=== PATIENT | male | born 1960 | race Caucasian/White ===

== ENCOUNTER 2020-01-09 10:08 | Emergency (ER) | payer OTHER, SELFPAY ==
--- NOTE | ~2020-01-09 | XR_ITS ---
EXAMINATION: XR chest 1V portable DATE: 01/09/2020 11:01 INDICATION: Chest pain, cough and dyspnea TECHNIQUE: frontal view of the chest was obtained. COMPARISON: Chest radiograph dated 03/20/2016 FINDINGS: The lungs are expanded with flattening of the diaphragm. No focal airspace opacities, pulmonary edema , pleural effusion or pneumothorax. The cardiomediastinal silhouette is normal. Visualized bones and soft tissues are unremarkable. IMPRESSION: 1. Hyperexpansion of the lungs suggestive but not diagnostic of COPD. Reviewed, dictated and finalized at location A.
[2020-01-09 10:08] VITALS: BP 152/88; PULSE 72; RESP 20; TEMP 36.9; O2SAT 98
--- NOTE | 2020-01-09 10:11 | ECG_ITS ---
Measurements Intervals [place] Rate: 69 P: 83 NV: 155 QRS: -44 QRSD: 120 T: 73 QT: 374 QTc: 403 Interpretive Statements SINUS RHYTHM LEFT AXIS DEVIATION LEFT BUNDLE BRANCH BLOCK ANTEROSEPTAL INFARCT OR DUE TO LBBB BASELINE ARTIFACT- I, II, III, AVR, AVL, AVF, V1-V6 ABNORMAL ECG Electronically Signed On 01-09-2020 13:48:34 CDT by Danny Coker D.O.
[2020-01-09] MEDS: SODIUM CHLORIDE 0.9% IV 500 ML 999 ML IV CONT (10:26)
[2020-01-09] MEDS: ASPIRIN 81 MG CHEWABLE TABLET 324 MG PO (10:26)
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
[2020-01-09 10:38] LABS: Basophils Absolute Auto 0.03 K/mm3 (0.00-0.10); Basophils Percent Auto 0.3 % (0.0-1.0); Eosinophils Absolute Auto 0.07 K/mm3 (0.02-0.50); Eosinophils Percent Auto 0.6 % (1.0-6.0); Hematocrit 43.4 % (40.0-54.0); Hemoglobin 14.6 g/dL (14.0-18.0); Immature Granulocyte Absolute 0.02 K/mm3 (0.00-0.00); Immature Granulocyte Percent A 0.2 % (0.0-0.0); Lymphocytes Absolute Auto 0.97 K/mm3 (1.10-4.50); Lymphocytes Percent Auto 8.4 % (18.0-42.0); Mean Corpuscular HGB Conc 33.6 g/dL (32.0-36.0); Mean Corpuscular Hemoglobin 30.3 pg (27.0-31.0); Mean Platelet Volume 8.4 fl (8.7-11.0); Monocytes Absolute Auto 0.86 K/mm3 (0.10-0.90); Monocytes Percent Auto 7.5 % (2.0-11.0); Neutrophils Absolute Auto 9.6 K/mm3 (1.7-7.2); Platelet Count Result 246 K/mm3 (150-420); Red Blood Count 4.82 M/mm3 (4.70-6.10); Red Cell Distribution Width 12.7 % (11.6-14.4); White Blood Count 11.5 K/mm3 (4.8-10.8)
[2020-01-09 10:42] VITALS: PULSE 66
[2020-01-09 10:52] LABS: D Dimer 0.22 mg/L (0.19-0.50); Partial Thromboplastin Time 31.3 SEC (22.3-31.6); Prothrombin Time 10.1 Seconds (9.64-11.0)
[2020-01-09 10:56] LABS: Influenza Control Valid (Valid)
--- NOTE | 2020-01-09 10:57 | PC.NURSE ---
report to catherine whitaker
[2020-01-09 10:59] LABS: Alanine Aminotransferase 19 U/L (16-63); Albumin Level 3.5 g/dL (3.4-5.0); Alkaline Phosphatase 114 U/L (46-116); Anion Gap 7 mmol/L (8-16); Aspartate Amino Transferase 21 U/L (15-37); Bilirubin,Total 0.4 mg/dL (0.00-1.00); Blood Urea Nitrogen 10 mg/dL (7-18); Calcium 9.1 mg/dL (8.5-10.1); Carbon Dioxide 30 mmol/L (21-32); Chloride 100 mmol/L (98-108); Estimated CRCL calculation 48 ml/min; Estimated Glomerular Filt Rate 57; Glucose 97 mg/dL (70-99); Osmolality Calculated 283 mOsm/kg (285-295); Potassium 4.2 mmol/L (3.5-5.1); Sodium 137 mmol/L (136-145); Total Protein 8.2 g/dL (6.4-8.2); Troponin I < 0.02 ng/mL (0.00-0.056)
[2020-01-09] MEDS: ACETAMINOPHEN 500 MG TABLET 1000 MG PO (11:00)
--- NOTE | 2020-01-09 11:00 | PC.NURSE ---
Pt declines chest pain at this time, nitroglycerin declined per pt.
[2020-01-09 11:02] LABS: BNP 58 pg/mL (0-100)
[2020-01-09 12:02] VITALS: BP 138/83; PULSE 70; RESP 18; O2SAT 99
[2020-01-09 12:11] LABS: Add Urine Microscopic? YES; Appearance Urine Clear (Clear); Bilirubin Urine Negative (Negative); Blood Urine 2+ (Negative); Color Urine Yellow (Yellow); Glucose Urine UA Negative (Negative); Ketones Urine Negative (Negative); Leukocyte Esterase Ur Negative LEU/UL (Negative); Nitrate Urine Negative (Negative); Protein Urine Negative (Negative); Specific Grav Ur 1.015 (1.010-1.020)
[2020-01-09 12:18] LABS: Bacteria Urine Trace /hpf; WBC Urine 0-3 /hpf (0-3)
[2020-01-09 14:00] VITALS: BP 140/84; PULSE 69; RESP 60; O2SAT 100
--- NOTE | 2020-01-09 14:33 | PC.NURSE ---
pt resting comfortably on stretcher, no distress noted. attempting to find a ride home for the patient.
[2020-01-09 14:50] VITALS: RESP 16; O2SAT 97
[2020-01-10 18:19] LABS: SARS-CoV-2 RNA PCR Negative
== END 2020-01-09 14:52 | disposition home or self-care (01) ==
PROVIDERS: Emergency Provider Emergency Medicine; PCP Physician Assistant
DX: J44.9 Chronic obstructive pulmonary disease, unspecified (principal); J06.9 Acute upper respiratory infection, unspecified; Z20.828 Contact with and (suspected) exposure to other viral communicable diseases
CPT/HCPCS: 36415; 71045; 80053; 81001; 83880; 84484; 85025; 85380; 85610; 85730; 87040; 87635; 87804; 93005; 96360; 99284; A9270; C9803; J7040; U0003

== ENCOUNTER 2020-04-02 15:53 | Emergency (ER) | payer OTHER, SELFPAY ==
[2020-04-02 16:42] VITALS: BP 128/70; PULSE 69; RESP 20; TEMP 36.2; O2SAT 98
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
== END 2020-04-02 17:33 | disposition home or self-care (01) ==
PROVIDERS: Emergency Provider Emergency Medicine; PCP Physician Assistant
DX: L02.415 Cutaneous abscess of right lower limb (principal)
CPT/HCPCS: 99283

== ENCOUNTER 2020-07-05 07:43 | Outpatient (CLI) | payer OTHER, SELFPAY ==
[2020-07-05 07:59] LABS: Basophils Absolute Auto 0.06 K/mm3 (0.00-0.10); Eosinophils Absolute Auto 0.38 K/mm3 (0.02-0.50); Eosinophils Percent Auto 6.5 % (1.0-6.0); Hematocrit 40.6 % (40.0-54.0); Hemoglobin 13.5 g/dL (14.0-18.0); Immature Granulocyte Absolute 0.01 K/mm3 (0.00-0.00); Immature Granulocyte Percent A 0.2 % (0.0-0.0); Lymphocytes Absolute Auto 1.11 K/mm3 (1.10-4.50); Lymphocytes Percent Auto 18.8 % (18.0-42.0); Mean Corpuscular HGB Conc 33.3 g/dL (32.0-36.0); Mean Corpuscular Hemoglobin 29.7 pg (27.0-31.0); Mean Corpuscular Volume 89.4 fL (78.0-102.0); Mean Platelet Volume 8.3 fl (8.7-11.0); Monocytes Absolute Auto 0.44 K/mm3 (0.10-0.90); Monocytes Percent Auto 7.5 % (2.0-11.0); Neutrophils Absolute Auto 3.9 K/mm3 (1.7-7.2); Platelet Count Result 239 K/mm3 (150-420); Red Blood Count 4.54 M/mm3 (4.70-6.10); Red Cell Distribution Width 13.2 % (11.6-14.4); White Blood Count 5.9 K/mm3 (4.8-10.8)
[2020-07-05 09:04] LABS: Alanine Aminotransferase 27 U/L (16-63); Albumin Level 3.6 g/dL (3.4-5.0); Alkaline Phosphatase 87 U/L (46-116); Anion Gap 6 mmol/L (8-16); Aspartate Amino Transferase 21 U/L (15-37); Bilirubin,Total 0.2 mg/dL (0.00-1.00); Blood Urea Nitrogen 16 mg/dL (7-18); Calcium 9.2 mg/dL (8.5-10.1); Carbon Dioxide 30 mmol/L (21-32); Chloride 102 mmol/L (98-108); Cholesterol 214 mg/dL (0-200); Creatine Kinase 156 U/L (39-308); Estimated Glomerular Filt Rate 59; Glucose 94 mg/dL (70-99); HDL Direct 96 mg/dL (40-60); LDL Cholesterol Calculated 103 mg/dL (<130); Osmolality Calculated 287 mOsm/kg (285-295); Potassium 4.8 mmol/L (3.5-5.1); Prostate Specific Antigen 0.5 ng/mL (< OR = 4.0); Sodium 138 mmol/L (136-145); Triglycerides 73 mg/dL (0-150)
[2020-07-05 09:11] LABS: Glucose Fasting 94 mg/dL
[2020-07-05 09:16] LABS: Glucose 1 Hour 222 mg/dL (<180)
[2020-07-05 10:44] LABS: Glucose 2 Hour 39 mg/dL (<155)
== END 2020-07-05 07:44 | disposition home or self-care (01) ==
LOC: CHSLAB 07:46
PROVIDERS: PCP Physician Assistant; Visit Provider Physician Assistant
DX: R73.09 Other abnormal glucose (principal); Z12.5 Encounter for screening for malignant neoplasm of prostate; E78.5 Hyperlipidemia, unspecified
CPT/HCPCS: 36415; 80053; 80061; 82550; 82951; 84153; 85025; G0103

== ENCOUNTER 2020-09-22 07:17 | Outpatient (CLI) | payer OTHER, SELFPAY ==
--- NOTE | ~2020-09-22 | XR_ITS ---
[XR ribs RT 2V w CXR 2V ] INDICATION: Right rib pain TECHNIQUE: Frontal projection of the upper right ribs, frontal projection of the lower right ribs, ob lique projection of all the right ribs, frontal inspiratory chest x-ray for interpretation. FINDINGS: There are no displaced rib fractures identified. There are no soft tissue abnormality see n. The lungs are clear. IMPRESSION: 1:No displaced rib fractures. Reviewed, dictated and finalized at location A.
== END 2020-09-22 07:18 | disposition home or self-care (01) ==
LOC: CHSIMG 07:21
PROVIDERS: PCP Physician Assistant; Visit Provider Physician Assistant
DX: R07.89 Other chest pain (principal)
CPT/HCPCS: 71046; 71100

== ENCOUNTER 2021-08-15 09:51 | Emergency (ER) | payer OTHER, SELFPAY ==
--- NOTE | ~2021-08-15 | XR_ITS ---
EXAMINATION: XR abdomen/kub 1V DATE: 08/15/2021 10:49 INDICATION: Rectal bleeding. Left-sided abdominal/flank pain. TECHNIQUE: A supine view of the abdomen on 2 radiographs was obtained. COMPARISON: CT dated 04/07/2015 FINDINGS: Moderate amount of gas scattered throughout multiple nondilated loops of large and small no dilated g as-filled loops of bowel to suggest obstruction. Multiple phleboliths in the pelvis. Lung bases are c lear. Heart size is normal. Mild lumbar levocurvature with mild spondylosis. IMPRESSION: 1. No dilated loops of bowel to suggest obstruction. Reviewed, dictated and finalized at location A.
[2021-08-15 10:10] VITALS: BP 146/82; PULSE 72; RESP 18; TEMP 36.1; O2SAT 100
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
[2021-08-15 10:45] LABS: Basophils Absolute Auto 0.06 K/mm3 (0.00-0.10); Basophils Percent Auto 0.9 % (0.0-1.0); Eosinophils Absolute Auto 0.25 K/mm3 (0.02-0.50); Eosinophils Percent Auto 3.9 % (1.0-6.0); Hematocrit 41.5 % (40.0-54.0); Hemoglobin 14.2 g/dL (14.0-18.0); Immature Granulocyte Absolute 0.01 K/mm3 (0.00-0.00); Immature Granulocyte Percent A 0.2 % (0.0-0.0); Lymphocytes Absolute Auto 1.06 K/mm3 (1.10-4.50); Lymphocytes Percent Auto 16.4 % (18.0-42.0); Mean Corpuscular HGB Conc 34.2 g/dL (32.0-36.0); Mean Corpuscular Hemoglobin 30.6 pg (27.0-31.0); Mean Corpuscular Volume 89.4 fL (78.0-102.0); Mean Platelet Volume 8.1 fl (8.7-11.0); Monocytes Absolute Auto 0.53 K/mm3 (0.10-0.90); Monocytes Percent Auto 8.2 % (2.0-11.0); Neutrophils Absolute Auto 4.5 K/mm3 (1.7-7.2); Neutrophils Percent Auto 70.4 % (50.0-70.0); Platelet Count Result 210 K/mm3 (150-420); Red Blood Count 4.64 M/mm3 (4.70-6.10); Red Cell Distribution Width 12.9 % (11.6-14.4); White Blood Count 6.5 K/mm3 (4.8-10.8)
[2021-08-15 10:58] LABS: Partial Thromboplastin Time 26.8 SEC (23.90-30.70); Prothrombin Time 10.6 Seconds (9.50-12.10)
[2021-08-15 11:01] LABS: Alanine Aminotransferase 36 U/L (16-63); Albumin Level 3.8 g/dL (3.4-5.0); Alkaline Phosphatase 95 U/L (46-116); Anion Gap 7 mmol/L (8-16); Aspartate Amino Transferase 42 U/L (15-37); Bilirubin,Total 0.2 mg/dL (0.00-1.00); Blood Urea Nitrogen 16 mg/dL (7-18); Calcium 8.9 mg/dL (8.5-10.1); Carbon Dioxide 27 mmol/L (21-32); Chloride 99 mmol/L (98-108); Estimated Glomerular Filt Rate > 60; Glucose 93 mg/dL (70-99); Lipase 273 U/L (73-393); Osmolality Calculated 277 mOsm/kg (285-295); Sodium 133 mmol/L (136-145); Total Protein 7.4 g/dL (6.4-8.2); Troponin I 11.8 ng/L (0.00-60.4)
[2021-08-15 11:09] VITALS: BP 143/67; PULSE 75; RESP 20; TEMP 36.6; O2SAT 98
== END 2021-08-15 11:15 | disposition home or self-care (01) ==
PROVIDERS: Emergency Provider Internal Medicine Critical Care Medicine; PCP Physician Assistant
DX: R25.2 Cramp and spasm (principal); K62.5 Hemorrhage of anus and rectum
CPT/HCPCS: 36415; 74018; 80053; 83690; 84484; 85025; 85610; 85730; 99284

== ENCOUNTER 2021-08-29 12:53 | Emergency (ER) | payer OTHER, SELFPAY ==
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
[2021-08-29 13:07] VITALS: BP 164/96; PULSE 96; RESP 20; TEMP 36.1; O2SAT 97
== END 2021-08-29 13:37 | disposition home or self-care (01) ==
PROVIDERS: Emergency Provider Emergency Medicine
DX: Z00.00 Encounter for general adult medical examination without abnormal findings (principal)
CPT/HCPCS: 99281

== ENCOUNTER 2021-10-31 16:01 | Outpatient (CLI) | payer OTHER, SELFPAY ==
[2021-10-31 16:19] LABS: Basophils Absolute Auto 0.07 K/mm3 (0.00-0.10); Eosinophils Percent Auto 5.9 % (1.0-6.0); Hematocrit 40.6 % (40.0-54.0); Hemoglobin 13.8 g/dL (14.0-18.0); Immature Granulocyte Absolute 0.01 K/mm3 (0.00-0.00); Immature Granulocyte Percent A 0.1 % (0.0-0.0); Lymphocytes Absolute Auto 1.58 K/mm3 (1.10-4.50); Lymphocytes Percent Auto 23.4 % (18.0-42.0); Mean Corpuscular Hemoglobin 30.9 pg (27.0-31.0); Mean Corpuscular Volume 90.8 fL (78.0-102.0); Mean Platelet Volume 8.3 fl (8.7-11.0); Monocytes Absolute Auto 0.68 K/mm3 (0.10-0.90); Monocytes Percent Auto 10.1 % (2.0-11.0); Neutrophils Percent Auto 59.5 % (50.0-70.0); Platelet Count Result 249 K/mm3 (150-420); Red Blood Count 4.47 M/mm3 (4.70-6.10); Red Cell Distribution Width 13.1 % (11.6-14.4); White Blood Count 6.8 K/mm3 (4.8-10.8)
[2021-10-31 16:32] LABS: Prothrombin Time 10.6 Seconds (9.50-12.10)
[2021-10-31 16:46] LABS: Anion Gap 8 mmol/L (8-16); Blood Urea Nitrogen 12 mg/dL (7-18); Calcium 8.7 mg/dL (8.5-10.1); Carbon Dioxide 26 mmol/L (21-32); Chloride 97 mmol/L (98-108); Cholesterol 187 mg/dL (0-200); Estimated Glomerular Filt Rate 57; Glucose 81 mg/dL (70-99); HDL Direct 114 mg/dL (40-60); LDL Cholesterol Calculated 60 mg/dL (<130); Osmolality Calculated 270 mOsm/kg (285-295); Potassium 4.2 mmol/L (3.5-5.1); Sodium 131 mmol/L (136-145); Triglycerides 65 mg/dL (0-150)
== END 2021-10-31 16:02 | disposition home or self-care (01) ==
LOC: CHSLAB 16:06
DX: M79.606 Pain in leg, unspecified (principal); Z87.891 Personal history of nicotine dependence; I25.10 Atherosclerotic heart disease of native coronary artery without angina pectoris; R56.9 Unspecified convulsions; E78.5 Hyperlipidemia, unspecified; I63.9 Cerebral infarction, unspecified
CPT/HCPCS: 36415; 80048; 80061; 85025; 85610

== ENCOUNTER 2023-01-01 20:01 | Emergency (ER) | payer OTHER, SELFPAY ==
[2023-01-01 20:02] VITALS: BP 118/81; PULSE 72; RESP 18; TEMP 36.6; O2SAT 97
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
[2023-01-01] MEDS: DACRIOSE EYE IRRIGATION 118 ML BOTTLE 10 ML EACH EYE (20:16)
[2023-01-01] MEDS: FLUORESCEIN SOD 1 MG/STRIP EACH EYE (20:16)
[2023-01-01] MEDS: TETRACAINE HCL 0.5% OPHTH SOLN 4 ML BTL 1 DROP EACH EYE (20:16)
[2023-01-01] MEDS: TOBRAMYCIN SULFATE 0.3% OPHTH SOLN 5 ML 2 DROP RIGHT EYE (20:38)
[2023-01-01 20:45] VITALS: BP 118/84; PULSE 78; RESP 18; O2SAT 97
== END 2023-01-01 20:50 | disposition home or self-care (01) ==
PROVIDERS: Emergency Provider Emergency Medicine
DX: T15.01XA Foreign body in cornea, right eye, initial encounter (principal); X58.XXXA Exposure to other specified factors, initial encounter; I25.10 Atherosclerotic heart disease of native coronary artery without angina pectoris; G40.909 Epilepsy, unspecified, not intractable, without status epilepticus; I69.351 Hemiplegia and hemiparesis following cerebral infarction affecting right dominant side; I69.320 Aphasia following cerebral infarction; Z79.84 Long term (current) use of oral hypoglycemic drugs; Z87.891 Personal history of nicotine dependence; Z79.51 Long term (current) use of inhaled steroids
CPT/HCPCS: 65220; 99283; A9270